=== PATIENT | female | born 1940 | race Caucasian/White ===

== ENCOUNTER 2017-07-20 15:39 | Inpatient (IN) | payer MEDICARE, OTHER ==
[~2017-07-20] VITALS: Ht 167.6 cm; Wt 103.4 kg
[2017-07-20] MEDS ORDERED: DOCUSATE SODIUM 283 MG/5 ML MINI-ENEMA PR PRN (18:15)
[2017-07-20] MEDS ORDERED: ACETAMINOPHEN 325 MG TABLET PO PRN (18:15)
[2017-07-20 18:41] VITALS: BP 120/51
[2017-07-20] MEDS ORDERED: HYDROCODONE/ACETAMINOPHEN 5-325 MG TABLET PO PRN (18:45)
[2017-07-20] MEDS ORDERED: PHENYTOIN SODIUM 100 MG ER CAPSULE PO SCH (21:00)
[2017-07-20] MEDS: ATORVASTATIN CALCIUM 20 MG TABLET PO SCH ×2 (21:00→21:17)
[2017-07-20 21:12] VITALS: BP 115/70
[2017-07-20] MEDS: BRINZOLAMIDE 1% 10 ML OPHTHALMIC SUSPENSION OU SCH (21:14)
[2017-07-20] MEDS: SENNA 187 MG TABLET PO SCH (21:16)
[2017-07-20] MEDS: BIMATOPROST 0.01% 2.5 ML OPHTHALMIC SOLUTION OU SCH (21:16)
[2017-07-20] MEDS: DOCUSATE SODIUM 100 MG CAPSULE PO SCH (21:17)
[2017-07-20] MEDS: DILTIAZEM HCL CD 120 MG ER CAPSULE PO SCH (21:17)
[2017-07-20] MEDS: APIXABAN 5 MG TABLET PO SCH (21:17)
[2017-07-20] MEDS: POTASSIUM CHLORIDE 10 MEQ ER TABLET PO SCH (21:19)
[2017-07-20] MEDS: DULoxetine HCL 60 MG CAPSULE PO SCH (21:19)
[2017-07-20] MEDS: LACOSAMIDE 100 MG TABLET PO SCH (21:19)
[2017-07-20 22:44] LABS: APPEARANCE,URINE CLOUDY (CLEAR); GLUCOSE, URINE (UA) NEGATIVE (NEGATIVE); KETONES,URINE NEGATIVE (NEGATIVE); LEUKOCYTE ESTERASE ,URINE MODERATE (NEGATIVE); OCCULT BLOOD,URINE TRACE (NEGATIVE); PH,URINE 5.5 (5.0-8.0); PROTEIN,URINE NEGATIVE (NEGATIVE)
[2017-07-20 22:56] LABS: SQUAMOUS EPITHELIAL CELL,UR Few /LPF (None Seen)
[2017-07-20 23:24] VITALS: BP 131/67
[2017-07-21 06:14] LABS: ALBUMIN 2.8 g/dL (3.4-5.0); BILIRUBIN,TOTAL 0.2 mg/dL (0.1-1.0); CREATININE 0.91 mg/dL (0.60-1.30); POTASSIUM 4.1 mmol/L (3.5-5.1); TOTAL PROTEIN, SERUM 6.7 g/dL (6.4-8.2)
[2017-07-21] MEDS: LEVOTHYROXINE SODIUM 50 MCG TABLET PO SCH (06:15)
[2017-07-21 06:22] LABS: BASOPHILS % (AUTO) 0.3 % (0.0-2.0); EOSINOPHILS % (AUTO) 2.7 % (1.0-6.0); HEMATOCRIT 34.2 % (36-46); HEMOGLOBIN 11.4 g/dL (12.0-16.0); LYMPHOCYTES # (AUTO) 1.9 K/uL (1.0-4.8); MEAN CORPUSCULAR HEMOGLOBIN 31.6 pg (26.0-34.0); MEAN CORPUSCULAR HGB CONC 33.3 G/dL (31.0-37.0); MEAN CORPUSCULAR VOLUME 95 fL (80-100); MONOCYTES # (AUTO) 0.6 K/uL (0.1-1.0); MONOCYTES % (AUTO) 8.6 % (2.0-9.0); NEUTROPHILS # (AUTO) 4.7 K/uL (1.8-7.7); NEUTROPHILS % (AUTO) 63.4 % (40.0-70.0); PLATELET COUNT (AUTO) 300 K/uL (150-450); RED BLOOD CELL COUNT(AUTO) 3.62 MIL/uL (4.00-5.20); RED CELL DISTRIBUTION WIDTH 14.8 % (11.5-14.5); WHITE BLOOD COUNT (AUTO) 7.5 K/uL (4.5-11.0)
[2017-07-21 08:02] VITALS: BP 144/89
[2017-07-21] MEDS: DOCUSATE SODIUM 100 MG CAPSULE PO SCH ×3 (08:21→20:53)
[2017-07-21] MEDS: APIXABAN 5 MG TABLET PO SCH ×2 (08:21→20:46)
[2017-07-21] MEDS: OMEPRAZOLE 20 MG CAPSULE PO SCH (08:21)
[2017-07-21] MEDS: BuPROPion HCL XL 150 MG ER TABLET PO SCH (08:21)
[2017-07-21] MEDS: LACOSAMIDE 100 MG TABLET PO SCH ×2 (08:21→20:46)
[2017-07-21] MEDS: DILTIAZEM HCL CD 240 MG ER CAPSULE PO SCH (08:21)
[2017-07-21] MEDS: DULoxetine HCL 60 MG CAPSULE PO SCH ×2 (08:22→20:45)
[2017-07-21] MEDS: DIGOXIN 125 MCG TABLET PO SCH (08:22)
[2017-07-21] MEDS: LOSARTAN POTASSIUM 25 MG TABLET PO SCH (08:22)
[2017-07-21] MEDS: EZETIMIBE 10 MG TABLET PO SCH (08:22)
[2017-07-21] MEDS: FUROSEMIDE 40 MG TABLET PO SCH (08:22)
[2017-07-21] MEDS: POTASSIUM CHLORIDE 10 MEQ ER TABLET PO SCH ×2 (08:22→20:45)
[2017-07-21] MEDS: BRINZOLAMIDE 1% 10 ML OPHTHALMIC SUSPENSION OU SCH ×3 (08:24→20:45)
[2017-07-21] MEDS ORDERED: APIX5TAB PO (12:55)
[2017-07-21] MEDS ORDERED: MODA100 PO (12:56)
[2017-07-21] MEDS ORDERED: BIMA12.5OS OU (13:10)
[2017-07-21] MEDS ORDERED: BRIN8DRO OU (13:11)
[2017-07-21] MEDS ORDERED: BUPR300T53 PO (13:16)
[2017-07-21] MEDS ORDERED: DIGO0.12 PO (13:19)
[2017-07-21] MEDS ORDERED: DILT120C88 PO (13:22)
[2017-07-21] MEDS ORDERED: DILT240C96 PO (13:23)
[2017-07-21 15:34] VITALS: BP 124/59
[2017-07-21 20:42] VITALS: BP 128/73
[2017-07-21] MEDS: DILTIAZEM HCL CD 120 MG ER CAPSULE PO SCH (20:45)
[2017-07-21] MEDS: BIMATOPROST 0.01% 2.5 ML OPHTHALMIC SOLUTION OU SCH (20:45)
[2017-07-21] MEDS: PHENYTOIN SODIUM 100 MG ER CAPSULE PO SCH (20:45)
[2017-07-21] MEDS: SENNA 187 MG TABLET PO SCH ×2 (20:45→20:54)
[2017-07-21] MEDS: ATORVASTATIN CALCIUM 20 MG TABLET PO SCH (20:45)
[2017-07-21 23:09] VITALS: BP 121/56
[2017-07-22] MEDS: LEVOTHYROXINE SODIUM 50 MCG TABLET PO SCH (06:25)
[2017-07-22 09:16] VITALS: BP 134/56
[2017-07-22] MEDS: FUROSEMIDE 40 MG TABLET PO SCH (09:48)
[2017-07-22] MEDS: BuPROPion HCL XL 150 MG ER TABLET PO SCH (09:48)
[2017-07-22] MEDS: DULoxetine HCL 60 MG CAPSULE PO SCH ×2 (09:48→21:06)
[2017-07-22] MEDS: BRINZOLAMIDE 1% 10 ML OPHTHALMIC SUSPENSION OU SCH ×3 (09:48→21:05)
[2017-07-22] MEDS: DIGOXIN 125 MCG TABLET PO SCH (09:48)
[2017-07-22] MEDS: EZETIMIBE 10 MG TABLET PO SCH (09:49)
[2017-07-22] MEDS: LOSARTAN POTASSIUM 25 MG TABLET PO SCH (09:49)
[2017-07-22] MEDS: DOCUSATE SODIUM 100 MG CAPSULE PO SCH ×4 (09:49→21:06)
[2017-07-22] MEDS: OMEPRAZOLE 20 MG CAPSULE PO SCH (09:49)
[2017-07-22] MEDS: POTASSIUM CHLORIDE 10 MEQ ER TABLET PO SCH ×2 (09:50→21:06)
[2017-07-22] MEDS: LACOSAMIDE 100 MG TABLET PO SCH ×2 (09:50→21:06)
[2017-07-22] MEDS: APIXABAN 5 MG TABLET PO SCH ×2 (09:50→21:06)
[2017-07-22] MEDS: DILTIAZEM HCL CD 240 MG ER CAPSULE PO SCH (09:50)
[2017-07-22] MEDS: MODAFINIL 100 MG TABLET PO SCH (09:51)
[2017-07-22] MEDS ORDERED: EZET10 PO (11:46)
[2017-07-22] MEDS ORDERED: DULO60CA44 PO (11:46)
[2017-07-22] MEDS ORDERED: LEVO50 PO (12:38)
[2017-07-22] MEDS ORDERED: FURO40 PO (12:38)
[2017-07-22] MEDS ORDERED: PHENY100 PO (12:49)
[2017-07-22] MEDS ORDERED: OMEP20 PO (12:49)
[2017-07-22] MEDS ORDERED: LOSA25TA21 PO (12:49)
[2017-07-22] MEDS ORDERED: KDUR10 PO (12:49)
[2017-07-22 15:27] VITALS: BP 131/60
[2017-07-22] MEDS: SENNA 187 MG TABLET PO SCH ×2 (21:00→21:06)
[2017-07-22 21:02] VITALS: BP 129/60
[2017-07-22] MEDS: PHENYTOIN SODIUM 100 MG ER CAPSULE PO SCH (21:05)
[2017-07-22] MEDS: BIMATOPROST 0.01% 2.5 ML OPHTHALMIC SOLUTION OU SCH (21:05)
[2017-07-22] MEDS: ATORVASTATIN CALCIUM 20 MG TABLET PO SCH (21:06)
[2017-07-22] MEDS: DILTIAZEM HCL CD 120 MG ER CAPSULE PO SCH (21:06)
[2017-07-23] VITALS: BP 148/55
[2017-07-23] MEDS: LEVOTHYROXINE SODIUM 50 MCG TABLET PO SCH (06:14)
[2017-07-23 07:29] VITALS: BP 135/64
[2017-07-23] MEDS: DIGOXIN 125 MCG TABLET PO SCH (07:46)
[2017-07-23] MEDS: FUROSEMIDE 40 MG TABLET PO SCH (07:46)
[2017-07-23] MEDS: POTASSIUM CHLORIDE 10 MEQ ER TABLET PO SCH ×2 (07:46→20:42)
[2017-07-23] MEDS: OMEPRAZOLE 20 MG CAPSULE PO SCH (07:46)
[2017-07-23] MEDS: DULoxetine HCL 60 MG CAPSULE PO SCH ×2 (07:46→20:42)
[2017-07-23] MEDS: DILTIAZEM HCL CD 240 MG ER CAPSULE PO SCH (07:46)
[2017-07-23] MEDS: MODAFINIL 100 MG TABLET PO SCH (07:47)
[2017-07-23] MEDS: EZETIMIBE 10 MG TABLET PO SCH (07:47)
[2017-07-23] MEDS: LACOSAMIDE 100 MG TABLET PO SCH ×2 (07:47→20:41)
[2017-07-23] MEDS: BuPROPion HCL XL 150 MG ER TABLET PO SCH (07:47)
[2017-07-23] MEDS: CHOLECALCIFEROL (VIT D3) 1,000 UNITS TABLET PO SCH ×3 (07:47→09:24)
[2017-07-23] MEDS: APIXABAN 5 MG TABLET PO SCH ×2 (07:47→20:42)
[2017-07-23] MEDS: BRINZOLAMIDE 1% 10 ML OPHTHALMIC SUSPENSION OU SCH ×3 (07:49→20:41)
[2017-07-23] MEDS: DOCUSATE SODIUM 100 MG CAPSULE PO SCH ×2 (07:50→20:42)
[2017-07-23] MEDS: LOSARTAN POTASSIUM 25 MG TABLET PO SCH (09:29)
[2017-07-23] MEDS: BENZOCAINE/MENTHOL LOZENGE [8 LOZENGES/PACKET] PO PRN (11:22)
[2017-07-23] MEDS: SULFAMETHOX/TRIMETH DS 800-160 MG/TABLET PO SCH ×2 (11:23→20:42)
[2017-07-23 16:20] VITALS: BP 118/57
[2017-07-23] MEDS: BIMATOPROST 0.01% 2.5 ML OPHTHALMIC SOLUTION OU SCH (20:41)
[2017-07-23] MEDS: PHENYTOIN SODIUM 100 MG ER CAPSULE PO SCH (20:41)
[2017-07-23] MEDS: DILTIAZEM HCL CD 120 MG ER CAPSULE PO SCH (20:42)
[2017-07-23] MEDS: SENNA 187 MG TABLET PO SCH (20:42)
[2017-07-23] MEDS: ATORVASTATIN CALCIUM 20 MG TABLET PO SCH (20:42)
[2017-07-23 21:15] VITALS: BP 125/55
[2017-07-23] MEDS ORDERED: WATER FOR IRRIGATION,STERILE 1000 ML SOLUTION BOTTLE ONE (21:31)
[2017-07-24 01:00] VITALS: BP 159/71
[2017-07-24] MEDS: LEVOTHYROXINE SODIUM 50 MCG TABLET PO SCH (06:02)
[2017-07-24 08:00] VITALS: BP 133/56
[2017-07-24] MEDS: OMEPRAZOLE 20 MG CAPSULE PO SCH (08:17)
[2017-07-24] MEDS: SULFAMETHOX/TRIMETH DS 800-160 MG/TABLET PO SCH (08:17)
[2017-07-24] MEDS: BRINZOLAMIDE 1% 10 ML OPHTHALMIC SUSPENSION OU SCH ×3 (08:17→20:24)
[2017-07-24] MEDS: APIXABAN 5 MG TABLET PO SCH ×2 (08:17→20:25)
[2017-07-24] MEDS: DULoxetine HCL 60 MG CAPSULE PO SCH ×2 (08:17→20:25)
[2017-07-24] MEDS: DIGOXIN 125 MCG TABLET PO SCH (08:17)
[2017-07-24] MEDS: DOCUSATE SODIUM 100 MG CAPSULE PO SCH ×2 (08:18→20:25)
[2017-07-24] MEDS: DILTIAZEM HCL CD 240 MG ER CAPSULE PO SCH (08:18)
[2017-07-24] MEDS: FUROSEMIDE 40 MG TABLET PO SCH (08:18)
[2017-07-24] MEDS: EZETIMIBE 10 MG TABLET PO SCH (08:19)
[2017-07-24] MEDS: LACOSAMIDE 100 MG TABLET PO SCH ×2 (08:19→20:25)
[2017-07-24] MEDS: BuPROPion HCL XL 150 MG ER TABLET PO SCH (08:19)
[2017-07-24] MEDS: MODAFINIL 100 MG TABLET PO SCH (08:19)
[2017-07-24] MEDS: POTASSIUM CHLORIDE 10 MEQ ER TABLET PO SCH ×2 (08:19→20:25)
[2017-07-24 08:20] VITALS: BP 115/64
[2017-07-24] MEDS: LOSARTAN POTASSIUM 25 MG TABLET PO SCH (08:21)
[2017-07-24] MEDS ORDERED: CHOLECALCIFEROL (VIT D3) 1,000 UNITS TABLET PO ONE (09:45)
[2017-07-24] MEDS: BENZOCAINE/MENTHOL LOZENGE [8 LOZENGES/PACKET] PO PRN ×3 (10:54→23:22)
[2017-07-24 15:36] VITALS: BP 129/71
[2017-07-24] MEDS ORDERED: DIGO125T PO (16:24)
[2017-07-24] MEDS: BIMATOPROST 0.01% 2.5 ML OPHTHALMIC SOLUTION OU SCH (20:24)
[2017-07-24 20:25] VITALS: BP 138/66
[2017-07-24] MEDS: PHENYTOIN SODIUM 100 MG ER CAPSULE PO SCH (20:25)
[2017-07-24] MEDS: SENNA 187 MG TABLET PO SCH (20:25)
[2017-07-24] MEDS: ATORVASTATIN CALCIUM 20 MG TABLET PO SCH (20:25)
[2017-07-24] MEDS: DILTIAZEM HCL CD 120 MG ER CAPSULE PO SCH (20:27)
[2017-07-24] MEDS ORDERED: NITROFURANTOIN/NITROFURAN MAC 100 MG CAPSULE [MACROBID] PO SCH (21:00)
[2017-07-24 23:58] VITALS: BP 132/65
[2017-07-25] MEDS: LEVOTHYROXINE SODIUM 50 MCG TABLET PO SCH (06:04)
[2017-07-25] MEDS ORDERED: SENNA 187 MG TABLET PO PRN (07:00)
[2017-07-25 08:00] VITALS: BP 128/59
[2017-07-25] MEDS: MODAFINIL 100 MG TABLET PO SCH (08:25)
[2017-07-25] MEDS: BuPROPion HCL XL 150 MG ER TABLET PO SCH (08:25)
[2017-07-25] MEDS: DIGOXIN 125 MCG TABLET PO SCH (08:25)
[2017-07-25] MEDS: OMEPRAZOLE 20 MG CAPSULE PO SCH (08:25)
[2017-07-25] MEDS: POTASSIUM CHLORIDE 10 MEQ ER TABLET PO SCH ×2 (08:26→21:01)
[2017-07-25] MEDS: NITROFURANTOIN/NITROFURAN MAC 100 MG CAPSULE [MACROBID] PO SCH (08:26)
[2017-07-25] MEDS: EZETIMIBE 10 MG TABLET PO SCH (08:26)
[2017-07-25] MEDS: DULoxetine HCL 60 MG CAPSULE PO SCH ×2 (08:27→21:02)
[2017-07-25] MEDS: DOCUSATE SODIUM 250 MG CAPSULE PO SCH ×2 (08:27→21:01)
[2017-07-25] MEDS: APIXABAN 5 MG TABLET PO SCH ×2 (08:27→21:01)
[2017-07-25] MEDS: BENZOCAINE/MENTHOL LOZENGE [8 LOZENGES/PACKET] PO PRN (08:28)
[2017-07-25] MEDS: FUROSEMIDE 40 MG TABLET PO SCH (08:29)
[2017-07-25] MEDS: LACOSAMIDE 100 MG TABLET PO SCH ×2 (08:29→21:01)
[2017-07-25] MEDS: LOSARTAN POTASSIUM 25 MG TABLET PO SCH (08:29)
[2017-07-25] MEDS: DILTIAZEM HCL CD 240 MG ER CAPSULE PO SCH (08:30)
[2017-07-25] MEDS: CARBOXYMETHYLCELLULOSE SODIUM 0.4 ML OPHTHALMIC SOLUTION [PF] OU PRN ×2 (08:31→16:16)
[2017-07-25] MEDS: BRINZOLAMIDE 1% 10 ML OPHTHALMIC SUSPENSION OU SCH ×3 (08:34→21:01)
[2017-07-25 15:54] VITALS: BP 123/55
[2017-07-25 20:57] VITALS: BP 145/55
[2017-07-25] MEDS: ATORVASTATIN CALCIUM 20 MG TABLET PO SCH (21:01)
[2017-07-25] MEDS: BIMATOPROST 0.01% 2.5 ML OPHTHALMIC SOLUTION OU SCH (21:01)
[2017-07-25] MEDS: DILTIAZEM HCL CD 120 MG ER CAPSULE PO SCH (21:02)
[2017-07-25] MEDS: PHENYTOIN SODIUM 100 MG ER CAPSULE PO SCH (21:02)
[2017-07-25 23:52] VITALS: BP 140/95
[2017-07-26] MEDS: LEVOTHYROXINE SODIUM 50 MCG TABLET PO SCH (06:06)
[2017-07-26 07:30] VITALS: BP 108/70
[2017-07-26] MEDS: MODAFINIL 100 MG TABLET PO SCH (08:13)
[2017-07-26] MEDS: DOCUSATE SODIUM 250 MG CAPSULE PO SCH ×2 (08:13→20:34)
[2017-07-26] MEDS: NITROFURANTOIN/NITROFURAN MAC 100 MG CAPSULE [MACROBID] PO SCH (08:14)
[2017-07-26] MEDS: APIXABAN 5 MG TABLET PO SCH ×2 (08:14→20:33)
[2017-07-26] MEDS: BuPROPion HCL XL 150 MG ER TABLET PO SCH (08:14)
[2017-07-26] MEDS: DIGOXIN 125 MCG TABLET PO SCH (08:14)
[2017-07-26] MEDS: BENZOCAINE/MENTHOL LOZENGE [8 LOZENGES/PACKET] PO PRN ×2 (08:14→23:33)
[2017-07-26] MEDS: POTASSIUM CHLORIDE 10 MEQ ER TABLET PO SCH ×2 (08:14→20:33)
[2017-07-26] MEDS: DULoxetine HCL 60 MG CAPSULE PO SCH ×2 (08:15→20:33)
[2017-07-26] MEDS: LOSARTAN POTASSIUM 25 MG TABLET PO SCH (08:15)
[2017-07-26] MEDS: LACOSAMIDE 100 MG TABLET PO SCH ×2 (08:16→20:33)
[2017-07-26] MEDS: EZETIMIBE 10 MG TABLET PO SCH (08:16)
[2017-07-26] MEDS: FUROSEMIDE 40 MG TABLET PO SCH (08:17)
[2017-07-26] MEDS: OMEPRAZOLE 20 MG CAPSULE PO SCH (08:17)
[2017-07-26] MEDS: DILTIAZEM HCL CD 240 MG ER CAPSULE PO SCH (08:17)
[2017-07-26] MEDS: BRINZOLAMIDE 1% 10 ML OPHTHALMIC SUSPENSION OU SCH ×3 (08:18→20:35)
[2017-07-26 15:08] VITALS: BP 146/64
[2017-07-26 15:56] VITALS: BP 137/58
[2017-07-26 20:31] VITALS: BP 130/69
[2017-07-26] MEDS: DILTIAZEM HCL CD 120 MG ER CAPSULE PO SCH (20:33)
[2017-07-26] MEDS: PHENYTOIN SODIUM 100 MG ER CAPSULE PO SCH (20:33)
[2017-07-26] MEDS: ATORVASTATIN CALCIUM 20 MG TABLET PO SCH (20:33)
[2017-07-26] MEDS: BIMATOPROST 0.01% 2.5 ML OPHTHALMIC SOLUTION OU SCH (20:35)
[2017-07-27] VITALS: BP 141/70
[2017-07-27] MEDS: LEVOTHYROXINE SODIUM 50 MCG TABLET PO SCH (07:11)
[2017-07-27 08:02] VITALS: BP 105/61
[2017-07-27] MEDS: APIXABAN 5 MG TABLET PO SCH ×2 (08:20→21:19)
[2017-07-27] MEDS: LACOSAMIDE 100 MG TABLET PO SCH ×2 (08:20→21:18)
[2017-07-27] MEDS: NITROFURANTOIN/NITROFURAN MAC 100 MG CAPSULE [MACROBID] PO SCH (08:20)
[2017-07-27] MEDS: BRINZOLAMIDE 1% 10 ML OPHTHALMIC SUSPENSION OU SCH ×3 (08:21→21:20)
[2017-07-27] MEDS: DIGOXIN 125 MCG TABLET PO SCH (08:21)
[2017-07-27] MEDS: BuPROPion HCL XL 150 MG ER TABLET PO SCH (08:21)
[2017-07-27] MEDS: MODAFINIL 100 MG TABLET PO SCH (08:21)
[2017-07-27] MEDS: DOCUSATE SODIUM 250 MG CAPSULE PO SCH ×3 (08:21→21:19)
[2017-07-27] MEDS: OMEPRAZOLE 20 MG CAPSULE PO SCH (08:22)
[2017-07-27] MEDS: DULoxetine HCL 60 MG CAPSULE PO SCH ×2 (08:22→21:19)
[2017-07-27] MEDS: LOSARTAN POTASSIUM 25 MG TABLET PO SCH (08:22)
[2017-07-27] MEDS: POTASSIUM CHLORIDE 10 MEQ ER TABLET PO SCH ×2 (08:22→21:19)
[2017-07-27] MEDS: DILTIAZEM HCL CD 240 MG ER CAPSULE PO SCH (08:22)
[2017-07-27] MEDS: EZETIMIBE 10 MG TABLET PO SCH (08:22)
[2017-07-27] MEDS: FUROSEMIDE 40 MG TABLET PO SCH (08:22)
[2017-07-27] MEDS: BENZOCAINE/MENTHOL LOZENGE [8 LOZENGES/PACKET] PO PRN (08:22)
[2017-07-27 15:31] VITALS: BP 117/65
[2017-07-27] MEDS: ATORVASTATIN CALCIUM 20 MG TABLET PO SCH (21:19)
[2017-07-27] MEDS: DILTIAZEM HCL CD 120 MG ER CAPSULE PO SCH (21:19)
[2017-07-27] MEDS: PHENYTOIN SODIUM 100 MG ER CAPSULE PO SCH (21:19)
[2017-07-27] MEDS: BIMATOPROST 0.01% 2.5 ML OPHTHALMIC SOLUTION OU SCH (21:20)
[2017-07-28 01:36] VITALS: BP 151/77
[2017-07-28] MEDS: LEVOTHYROXINE SODIUM 50 MCG TABLET PO SCH (06:05)
[2017-07-28 07:30] VITALS: BP 135/69
[2017-07-28] MEDS: NITROFURANTOIN/NITROFURAN MAC 100 MG CAPSULE [MACROBID] PO SCH (09:16)
[2017-07-28] MEDS: DIGOXIN 125 MCG TABLET PO SCH (09:16)
[2017-07-28] MEDS: MODAFINIL 100 MG TABLET PO SCH (09:16)
[2017-07-28] MEDS: BuPROPion HCL XL 150 MG ER TABLET PO SCH (09:16)
[2017-07-28] MEDS: POTASSIUM CHLORIDE 10 MEQ ER TABLET PO SCH ×2 (09:17→20:52)
[2017-07-28] MEDS: LACOSAMIDE 100 MG TABLET PO SCH ×2 (09:17→20:52)
[2017-07-28] MEDS: LOSARTAN POTASSIUM 25 MG TABLET PO SCH (09:17)
[2017-07-28] MEDS: DOCUSATE SODIUM 250 MG CAPSULE PO SCH ×2 (09:17→20:53)
[2017-07-28] MEDS: DILTIAZEM HCL CD 240 MG ER CAPSULE PO SCH (09:17)
[2017-07-28] MEDS: APIXABAN 5 MG TABLET PO SCH ×2 (09:17→20:53)
[2017-07-28] MEDS: EZETIMIBE 10 MG TABLET PO SCH (09:18)
[2017-07-28] MEDS: FUROSEMIDE 40 MG TABLET PO SCH (09:18)
[2017-07-28] MEDS: OMEPRAZOLE 20 MG CAPSULE PO SCH (09:18)
[2017-07-28] MEDS: DULoxetine HCL 60 MG CAPSULE PO SCH ×2 (09:18→20:52)
[2017-07-28] MEDS: BRINZOLAMIDE 1% 10 ML OPHTHALMIC SUSPENSION OU SCH ×3 (09:19→20:53)
[2017-07-28 12:31] LABS: BASOPHILS % (AUTO) 0.5 % (0.0-2.0); EOSINOPHILS % (AUTO) 2.4 % (1.0-6.0); HEMATOCRIT 39.4 % (36-46); HEMOGLOBIN 12.9 g/dL (12.0-16.0); LYMPHOCYTES % (AUTO) 26.6 % (22.0-44.0); MEAN CORPUSCULAR HEMOGLOBIN 31.2 pg (26.0-34.0); MEAN CORPUSCULAR HGB CONC 32.7 G/dL (31.0-37.0); MEAN CORPUSCULAR VOLUME 95 fL (80-100); MONOCYTES # (AUTO) 0.6 K/uL (0.1-1.0); MONOCYTES % (AUTO) 8.2 % (2.0-9.0); NEUTROPHILS # (AUTO) 4.6 K/uL (1.8-7.7); NEUTROPHILS % (AUTO) 62.3 % (40.0-70.0); PLATELET COUNT (AUTO) 347 K/uL (150-450); RED BLOOD CELL COUNT(AUTO) 4.13 MIL/uL (4.00-5.20); WHITE BLOOD COUNT (AUTO) 7.4 K/uL (4.5-11.0)
[2017-07-28 12:49] LABS: CALCIUM, TOTAL 9.3 mg/dL (8.8-10.5); CREATININE 0.92 mg/dL (0.60-1.30)
[2017-07-28] MEDS ORDERED: BRINOS OU (14:51)
[2017-07-28] MEDS ORDERED: DIGO125T PO (14:51)
[2017-07-28] MEDS ORDERED: DOCU250C91 PO (14:54)
[2017-07-28] MEDS ORDERED: LACO100 PO (14:54)
[2017-07-28] MEDS ORDERED: MACR100 PO (14:54)
[2017-07-28] MEDS ORDERED: VITAD1000 PO (14:54)
[2017-07-28 15:53] VITALS: BP 107/51
[2017-07-28] MEDS: DILTIAZEM HCL CD 120 MG ER CAPSULE PO SCH (20:53)
[2017-07-28] MEDS: ATORVASTATIN CALCIUM 20 MG TABLET PO SCH (20:53)
[2017-07-28] MEDS: PHENYTOIN SODIUM 100 MG ER CAPSULE PO SCH (20:53)
[2017-07-28] MEDS: BIMATOPROST 0.01% 2.5 ML OPHTHALMIC SOLUTION OU SCH (20:54)
[2017-07-28 20:58] VITALS: BP 124/57
[2017-07-28 23:38] VITALS: BP 131/70
[2017-07-29] MEDS: LEVOTHYROXINE SODIUM 50 MCG TABLET PO SCH (06:09)
[2017-07-29 08:54] VITALS: BP 145/66
[2017-07-29] MEDS: NITROFURANTOIN/NITROFURAN MAC 100 MG CAPSULE [MACROBID] PO SCH (09:21)
[2017-07-29] MEDS: BuPROPion HCL XL 150 MG ER TABLET PO SCH (09:21)
[2017-07-29] MEDS: DOCUSATE SODIUM 250 MG CAPSULE PO SCH (09:22)
[2017-07-29] MEDS: EZETIMIBE 10 MG TABLET PO SCH (09:22)
[2017-07-29] MEDS: DILTIAZEM HCL CD 240 MG ER CAPSULE PO SCH (09:22)
[2017-07-29] MEDS: DULoxetine HCL 60 MG CAPSULE PO SCH (09:22)
[2017-07-29] MEDS: APIXABAN 5 MG TABLET PO SCH (09:22)
[2017-07-29] MEDS: FUROSEMIDE 40 MG TABLET PO SCH (09:22)
[2017-07-29] MEDS: LACOSAMIDE 100 MG TABLET PO SCH (09:22)
[2017-07-29] MEDS: DIGOXIN 125 MCG TABLET PO SCH (09:22)
[2017-07-29] MEDS: MODAFINIL 100 MG TABLET PO SCH (09:22)
[2017-07-29] MEDS: LOSARTAN POTASSIUM 25 MG TABLET PO SCH (09:22)
[2017-07-29] MEDS: POTASSIUM CHLORIDE 10 MEQ ER TABLET PO SCH (09:23)
[2017-07-29] MEDS: BENZOCAINE/MENTHOL LOZENGE [8 LOZENGES/PACKET] PO PRN (09:23)
[2017-07-29] MEDS: BRINZOLAMIDE 1% 10 ML OPHTHALMIC SUSPENSION OU SCH (09:24)
[2017-07-29] MEDS: OMEPRAZOLE 20 MG CAPSULE PO SCH (09:24)
[2017-07-29] MEDS ORDERED: ATOR20TA86 PO (10:27)
== END 2017-07-29 13:25 | disposition home health service (06) | DRG 65 ==
LOC: 2WR 17:50
PROVIDERS: ADMIT Physical Medicine & Rehabilitation; ATTEND Physical Medicine & Rehabilitation
DX: I63.531 Cerebral infarction due to unspecified occlusion or stenosis of right posterior cerebral artery (principal); E44.0 Moderate protein-calorie malnutrition; I48.91 Unspecified atrial fibrillation; F33.1 Major depressive disorder, recurrent, moderate; H53.469 Homonymous bilateral field defects, unspecified side; N39.0 Urinary tract infection, site not specified; B00.9 Herpesviral infection, unspecified; B96.20 Unspecified Escherichia coli [E. coli] as the cause of diseases classified elsewhere; E11.9 Type 2 diabetes mellitus without complications; E03.9 Hypothyroidism, unspecified; E78.5 Hyperlipidemia, unspecified; G40.909 Epilepsy, unspecified, not intractable, without status epilepticus; G43.909 Migraine, unspecified, not intractable, without status migrainosus; G47.33 Obstructive sleep apnea (adult) (pediatric); H40.9 Unspecified glaucoma; I10 Essential (primary) hypertension; K21.9 Gastro-esophageal reflux disease without esophagitis; M54.10 Radiculopathy, site unspecified; Z16.24 Resistance to multiple antibiotics; Z79.01 Long term (current) use of anticoagulants; Z79.899 Other long term (current) drug therapy; Z80.0 Family history of malignant neoplasm of digestive organs; Z83.3 Family history of diabetes mellitus; Z86.73 Personal history of transient ischemic attack (TIA), and cerebral infarction without residual deficits; Z91.81 History of falling; Z88.8 Allergy status to other drugs, medicaments and biological substances; Z88.1 Allergy status to other antibiotic agents; Z88.0 Allergy status to penicillin
CPT/HCPCS: 87081; 87086; 92507; 92508; 92523; 94660; 97110; 97112; 97116; 97150; 97162; 97166; 97530; 97535; 99366